=== PATIENT | female | born 1985 | race Caucasian/White ===

== ENCOUNTER 2017-05-16 18:37 | Emergency (ER) | payer BC ==
[~2017-05-16] VITALS: Ht 167.6 cm; Wt 54.4 kg
[2017-05-16 18:37] VITALS: BP 116/62
[2017-05-16 19:11] LABS: BILIRUBIN,URINE Negative (NEGATIVE); BLOOD, URINE Trace-lysed Ery/uL (NEGATIVE); COLOR,URINE Light yellow (YELLOW); KETONES,URINE Negative (NEGATIVE); LEUKOCYTE ESTERASE ,URINE Small (NEGATIVE); NITRITE, URINE Negative (NEGATIVE); PROTEIN,URINE Negative (NEGATIVE); UGLUCOSE Negative (NEGATIVE); UROBILINOGEN,URINE 0.2 EU/dL (0.2)
[2017-05-16 19:12] LABS: APPEARANCE,URINE HAZY (CLEAR)
[2017-05-16 19:25] LABS: BACTERIA,URINE Moderate /HPF (None Seen); SQUAMOUS EPITHELIAL CELL,UR Moderate /HPF (None Seen)
== END 2017-05-16 20:02 | disposition home or self-care (01) ==
LOC: ER 18:44
DX: N39.0 Urinary tract infection, site not specified (principal)
CPT/HCPCS: 81000-TC; 84703-TC; 87086-TC; A4606; Z7610